=== PATIENT | female | born 1990 | race Caucasian/White ===

== ENCOUNTER 2018-05-05 06:14 | Day surgery (SDC) | payer BC ==
[2018-04-29 11:01] VITALS: BMI 36.9
--- NOTE | 2018-05-04 17:26 | P.HPOB ---
History of Present Illness H&P Date: 05/04/18 Chief Complaint: Family planning Natividad is a 27-year-old female who is completed her family planning and desires permanent sterilization. Risks/benefits/alternatives to a laparoscopic tubal occlusion with Filshie clips were reviewed with the patient in detail all questions were answered for her prior to proceeding to the operating room. Past Medical History Past Medical History: No Reported History History of Any Multi-Drug Resistant Organisms: None Reported Past Surgical History: No Surgical Hx Reported Past Anesthesia/Blood Transfusion Reactions: No Reported Reaction Past Psychological History: No Psychological Hx Reported Smoking Status: Current every day smoker Past Alcohol Use History: None Reported Additional Past Alcohol Use History / Comment(s): Has been smoking for 7 yrs, 2- 3 cigarettes per day. Past Drug Use History: None Reported - Past Family History Mother Family Medical History: No Reported History Medications and Allergies Home Medications Medication Instructions Recorded Confirmed Type Cyanocobalamin (Vitamin B-12) 1,000 mcg PO DAILY 04/29/18 04/29/18 History [Vitamin B-12] Allergies Allergy/AdvReac Type Severity Reaction Status Date / Time No Known Allergies Allergy Verified 04/29/18 10:53 Exam Osteopathic Statement: *. No significant issues noted on an osteopathic structural exam other than those noted in the History and Physical/Consult. - OBG Physical Exam Breast: both: normal (no masses) Abdomen: Obese Abdomen: bowel sounds normal, no diffuse tenderness, no bruit present, no guarding noted, no hepatomegaly, no splenomegaly, no mass Vulva: both: normal Vagina: normal moisture, no discharge Cervix: no lesion, no discharge Uterus: normal size, normal contour Adnexa: both: normal Anus/Rectum: normal perianal skin, no rectal mass, no hemorrhoids, heme negative
[~2018-05-05 06:14] MED LIST: DEXAMETHASONE SOD PHOSPHATE 10 MG/ML 1 ML VIAL IV ONE; HYDROmorphone 0.5 MG/0.5 ML SYRINGE IVP PRN; LACTATED RINGERS 1,000 ML IV SCH; LIDOCAINE 1% 20 ML VIAL (10MG/ML) FOR IV START INTRADERMA PRN; MIDAZOLAM 2 MG/2 ML VIAL IV PRN; ONDANSETRON 4 MG/2 ML VIAL IVP ONE; Pre Op ABX Message 1 EACH MISC MISCELLANE ONE; SCOPOLAMINE 1.5MG/72HR PATCH TRANSDERM ONE
[2018-05-05] MEDS ORDERED: LACTATED RINGERS 1,000 ML IV ONE (06:46)
[2018-05-05] MEDS ORDERED: PROPOFOL 10 MG/ML 20 ML VIAL IV ONE (07:48)
[2018-05-05] MEDS ORDERED: fentaNYL (PF) 50 MCG/ML 2 ML AMP ONE (07:48)
[2018-05-05] MEDS ORDERED: SUCCINYLCHOLINE CHLORIDE 100 MG/5 ML SYR IV ONE (07:48)
[2018-05-05] MEDS ORDERED: MIDAZOLAM 2 MG/2 ML VIAL ONE (07:48)
[2018-05-05] MEDS ORDERED: LIDOCAINE 1% INJ 10MG/ML (20 ML MDV) ONE (07:48)
[2018-05-05] MEDS ORDERED: BUPIVACAINE (PF) 0.5% 30 ML VIAL SQ ONE ×2 (08:06)
--- NOTE | 2018-05-05 08:28 | P.OP ---
Date of Procedure: 05/05/18 Preoperative Diagnosis: Family planning Postoperative Diagnosis: Lap tubal with Filshie clips Procedure(s) Performed: Same Anesthesia: VENTURA Surgeon: Kris Shipley Estimated Blood Loss (ml): 3 Pathology: none sent Condition: stable Disposition: same day Operative Findings: Normal female pelvic anatomy Description of Procedure: Patient was taken to the operating suite where a general anesthetic was found be adequate. She was prepped and draped in the normal sterile fashion and placed in the dorsal lithotomy position. Initially a speculum was inserted into the vagina and the anterior lip of the cervix identified and grasped with an Allis clamp. Uterus was then sounded to 7 cm and a manipulator was inserted without difficulty. Red rubber catheter was then used to drain the bladder of urine. Other instruments removed from the vagina and gloves were changed. Attention was turned to the abdominal portion of the procedure where 3 mL of quarter percent Marcaine was injected subcuticularly. Through this injected anesthetic a 5 mm skin incision was made and through this incision under direct visualization traction with an optical trocar and sleeve the camera was inserted. Once peritoneal placement was assured gas was allowed to fully and slick the abdomen and patient was then placed in steep Trendelenburg position. Second 8 mm skin incision was then made 3 cm above the pubic symphysis in the midline and a second port and sleeve were inserted again under direct visualization. Uterus was then elevated and first the right fallopian tube the left fallopian tube had a Filshie clip applied 2-3 cm from the uterine cornu. No bleeding is noted in the mesosalpinx. Instruments are then removed and gas allowed to expel from the abdomen. 5 deep breaths were provided during this process. Once accomplished 4-0 Vicryl was used to close the incisions subcuticularly and another 5 mL of quarter percent Marcaine was injected around these incisions. Instruments were then removed from the vagina and patient was taken to the recovery room in stable and satisfactory condition. Patient tolerated surgery very well. Plan - Discharge Summary New Discharge Prescriptions: New HYDROcodone/APAP 5-325MG [Calhoun 5-325] 1 tab PO Q4HR PRN 3 Days #18 tab PRN Reason: Pain Ibuprofen [Motrin] 600 mg PO Q6HR PRN #30 tab PRN Reason: Pain No Action Cyanocobalamin (Vitamin B-12) [Vitamin B-12] 1,000 mcg PO DAILY Discharge Medication List Cyanocobalamin (Vitamin B-12) [Vitamin B-12] 1,000 mcg PO DAILY 04/29/18 [ History] HYDROcodone/APAP 5-325MG [Calhoun 5-325] 1 tab PO Q4HR PRN 3 Days #18 tab [Rx] Ibuprofen [Motrin] 600 mg PO Q6HR PRN #30 tab 05/05/18 [Rx] Follow up Appointment(s)/Referral(s): Kris Shipley DO [Doctor of Osteopathic Medicine] - 2 Weeks Activity/Diet/Wound Care/Special Instructions: No heavy lifting, limit stairs and driving today, pelvic rest. If any high temperatures, heavy bleeding, or severe pain call my office Discharge Disposition: HOME SELF-CARE
[2018-05-05 08:31] VITALS: TEMP 96.8
[2018-05-05] MEDS ORDERED: diphenhydrAMINE 50 MG/ML 1 ML VIAL IVP ONE (08:31)
[2018-05-05] MEDS: MEPERIDINE 50 MG/ML SYRINGE IVP ONE ×2 (08:38→08:44)
[2018-05-05 08:53] VITALS: RESP 18
[2018-05-05] MEDS ORDERED: SODIUM CHLORIDE 0.9% 1,000 ML IV ONE (08:54)
[2018-05-05] MEDS ORDERED: IBUPROFEN 200 MG TAB PO ONE (10:12)
[2018-05-05] MEDS ORDERED: ONDANSETRON 4 MG/2 ML VIAL IVP ONE (10:23)
[2018-05-05 11:07] VITALS: BP 117/72; PULSE 80
== END 2018-05-05 11:27 | disposition home or self-care (01) ==
LOC: OR 06:14
PROVIDERS: ATTEND Obstetrics & Gynecology
DX: Z30.2 Encounter for sterilization (principal); F17.210 Nicotine dependence, cigarettes, uncomplicated
CPT/HCPCS: 58671; 81025; J2250; J1200; J1100; J2175; J2405; J2001; J3010; J0330; J2704

== ENCOUNTER 2018-05-24 15:10 | Emergency (ER) | payer BC ==
[2018-05-24 15:25] VITALS: RESP 18
--- NOTE | 2018-05-24 15:43 | ED ---
General Adult HPI - General Chief complaint: Psychiatric Symptoms Stated complaint: drug ingestion Time Seen by Provider: 05/24/18 15:24 Source: EMS Mode of arrival: EMS Limitations: no limitations - History of Present Illness Initial comments: Knee 8 years old female been drinking today and had some 5-7 Motrin 600 mg by mouth one hour ago. She denies any suicidal or homicidal ideation. Denies any headaches no chest pain or shortness of breath has some abdominal pain bolow the umblicus no frequency urgency dysuria, no other complaints. System is unremarkable otherwise - Related Data Home Medications Medication Instructions Recorded Confirmed Cyanocobalamin (Vitamin B-12) 1,000 mcg PO DAILY 04/29/18 05/24/18 [Vitamin B-12] Biotin 5 mg PO DAILY 05/24/18 05/24/18 Allergies Allergy/AdvReac Type Severity Reaction Status Date / Time No Known Allergies Allergy Verified 05/24/18 17:42 Review of Systems ROS Statement: Those systems with pertinent positive or pertinent negative responses have been documented in the HPI. ROS Other: All systems not noted in ROS Statement are negative. Past Medical History Past Medical History: No Reported History History of Any Multi-Drug Resistant Organisms: None Reported Past Surgical History: Tubal Ligation Past Anesthesia/Blood Transfusion Reactions: No Reported Reaction Past Psychological History: No Psychological Hx Reported Smoking Status: Current every day smoker Past Alcohol Use History: Occasional Past Drug Use History: None Reported - Past Family History Mother Family Medical History: No Reported History General Exam - General Exam Comments Initial Comments: General: The patient is awake and alert, in no distress, and does not appear acutely ill. He is pleasant and cooperative but intoxicated Skin: Skin is warm and dry and no rashes or lesions are noted. Eye: Pupils are equal, round and reactive to light, extra-ocular movements are intact; there is normal conjunctiva bilaterally. Ears, nose, mouth and throat: There are moist mucous membranes and no oral lesions. Neck: The neck is supple, there is no tenderness or JVD. Cardiovascular: There is a regular rate and rhythm. No murmur, rub or gallop is appreciated. Respiratory: To auscultation bilateral, no wheezing no rhonchi no distress respiratory portillo noticed Gastrointestinal: Positive for tenderness in epigastric area Back: There is no tenderness to palpation in the midline. There is no obvious deformity. Musculoskeletal: Normal ROM, no tenderness, There is no pedal edema. There is no calf tenderness or swelling. No cords were appreciated. Neurological: CN II-XII intact, Cranial nerves III through XII are intact. There are no obvious motor or sensory deficits. Coordination appears grossly intact. Speech is normal. Psychiatric: Cooperative, Intoxicated denies any suicidal or homicidal ideation at this point obviously she will need to be reevaluated once she is sober EPS Limitations: no limitations Course Vital Signs 05/24/18 15:21 Temperature 98.3 F Pulse Rate 86 Respiratory 18 Rate Blood Pressure 136/94 O2 Sat by Pulse 96 Oximetry I have advised the RN to call the poison control and I'm going to give the patient Protonix 40 mg IV, total protonix patient got is 4200mg. Patient was reassessed once he was sober she also was seen by EPS and now CPS felt comfortable sending her home. She denies any suicidal or homicidal ideation after she sober she got a very good support she has her mom and sister in the in the room, She will follow-up according to the EPS instructions. EKG Findings - EKG Comments: EKG Findings:: She is a normal sinus ventricular rate is 85 DC interval is 156 QRS duration is 88 QT/QTc is 380/454 review of this EKG reveals T-wave inversion in lead [address] elevation or ST depression noticed any other leads. Medical Decision Making - Lab Data Result diagrams: 05/24/18 15:38 05/24/18 15:38 Lab Results 05/24/18 05/24/18 05/24/18 Range/Units 15:38 15:38 15:38 WBC 12.4 H (3.8-10.6) k/uL RBC 4.86 (3.80-5.40) m/uL Hgb 14.1 (11.4-16.0) gm/dL Hct 42.6 (34.0-46.0) % MCV 87.6 (80.0-100.0) fL MCH 29.1 (25.0-35.0) pg MCHC 33.2 (31.0-37.0) g/dL RDW 12.8 (11.5-15.5) % Plt Count 391 (150-450) k/uL Neutrophils % 71 % Lymphocytes % 22 % Monocytes % 5 % Eosinophils % 1 % Basophils % 0 % Neutrophils # 8.8 H (1.3-7.7) k/uL Lymphocytes # 2.8 (1.0-4.8) k/uL Monocytes # 0.6 (0-1.0) k/uL Eosinophils # 0.1 (0-0.7) k/uL Basophils # 0.0 (0-0.2) k/uL Sodium 143 (137-145) mmol/L Potassium 4.8 (3.5-5.1) mmol/L Chloride 110 H (98-107) mmol/L Carbon Dioxide 18 L (22-30) mmol/L Anion Gap 15 mmol/L BUN 7 (7-17) mg/dL Creatinine 0.62 (0.52-1.04) mg/dL Est GFR (CKD-EPI)AfAm >90 (>60 ml/min/1.73 sqM) Est GFR (CKD-EPI)NonAf >90 (>60 ml/min/1.73 sqM) Glucose 91 (74-99) mg/dL Calcium 9.6 (8.4-10.2) mg/dL AST (14-36) U/L ALT (9-52) U/L Urine HCG, Qual (Not Detectd) Salicylates <1.0 mg/dL Urine Opiates Screen Not Detected (NotDetected) Ur Oxycodone Screen Not Detected (NotDetected) Urine Methadone Screen Not Detected (NotDetected) Ur Propoxyphene Screen Not Detected (NotDetected) Acetaminophen <10.0 ug/mL Ur Barbiturates Screen Not Detected (NotDetected) U Tricyclic Antidepress Not Detected (NotDetected) Ur Phencyclidine Scrn Not Detected (NotDetected) Ur Amphetamines Screen Not Detected (NotDetected) U Methamphetamines Scrn Not Detected (NotDetected) U Benzodiazepines Scrn Not Detected (NotDetected) Urine Cocaine Screen Not Detected (NotDetected) U Marijuana (THC) Screen Not Detected (NotDetected) Serum Alcohol 149 mg/dL 05/24/18 05/24/18 Range/Units 15:38 15:38 WBC (3.8-10.6) k/uL RBC (3.80-5.40) m/uL Hgb (11.4-16.0) gm/dL Hct (34.0-46.0) % MCV (80.0-100.0) fL MCH (25.0-35.0) pg MCHC (31.0-37.0) g/dL RDW (11.5-15.5) % Plt Count (150-450) k/uL Neutrophils % % Lymphocytes % % Monocytes % % Eosinophils % % Basophils % % Neutrophils # (1.3-7.7) k/uL Lymphocytes # (1.0-4.8) k/uL Monocytes # (0-1.0) k/uL Eosinophils # (0-0.7) k/uL Basophils # (0-0.2) k/uL Sodium (137-145) mmol/L Potassium (3.5-5.1) mmol/L Chloride (98-107) mmol/L Carbon Dioxide (22-30) mmol/L Anion Gap mmol/L BUN (7-17) mg/dL Creatinine (0.52-1.04) mg/dL Est GFR (CKD-EPI)AfAm (>60 ml/min/1.73 sqM) Est GFR (CKD-EPI)NonAf (>60 ml/min/1.73 sqM) Glucose (74-99) mg/dL Calcium (8.4-10.2) mg/dL AST 27 (14-36) U/L ALT 18 (9-52) U/L Urine HCG, Qual Not Detected (Not Detectd) Salicylates mg/dL Urine Opiates Screen (NotDetected) Ur Oxycodone Screen (NotDetected) Urine Methadone Screen (NotDetected) Ur Propoxyphene Screen (NotDetected) Acetaminophen ug/mL Ur Barbiturates Screen (NotDetected) U Tricyclic Antidepress (NotDetected) Ur Phencyclidine Scrn (NotDetected) Ur Amphetamines Screen (NotDetected) U Methamphetamines Scrn (NotDetected) U Benzodiazepines Scrn (NotDetected) Urine Cocaine Screen (NotDetected) U Marijuana (THC) Screen (NotDetected) Serum Alcohol mg/dL Disposition Clinical Impression: Overdose, Acute alcohol intoxication Disposition: HOME SELF-CARE Condition: Good Instructions: Adult Overdose (ED) Is patient prescribed a controlled substance at d/c from ED?: No Referrals: Jennifer Vega MD [Primary Care Provider] - 1-2 days
[2018-05-24 16:04] LABS: Basophils % (A) 0 %; Eosinophils # (A) 0.1 k/uL (0-0.7); Eosinophils % (A) 1 %; HCT 42.6 % (34.0-46.0); HGB 14.1 gm/dL (11.4-16.0); Lymphocytes # (A) 2.8 k/uL (1.0-4.8); Lymphocytes % (A) 22 %; MCH 29.1 pg (25.0-35.0); MCHC 33.2 g/dL (31.0-37.0); MCV 87.6 fL (80.0-100.0); Mean Platelet Volume 7.4; Monocytes # (A) 0.6 k/uL (0-1.0); Monocytes % (A) 5 %; Neutrophils # (A) 8.8 k/uL (1.3-7.7); Neutrophils % (A) 71 %; Platelet Count 391 k/uL (150-450); RBC 4.86 m/uL (3.80-5.40); RDW 12.8 % (11.5-15.5); WBC 12.4 k/uL (3.8-10.6)
[2018-05-24 16:13] LABS: Acetaminophen <10.0 ug/mL; Amphetamine Screen,Urine Not Detected (NotDetected); Anion Gap 15 mmol/L; Benzodiazepines Screen,Urine Not Detected (NotDetected); Blood Urea Nitrogen 7 mg/dL (7-17); Calcium 9.6 mg/dL (8.4-10.2); Carbon Dioxide 18 mmol/L (22-30); Chloride 110 mmol/L (98-107); Cocaine Screen,Urine Not Detected (NotDetected); Glucose 91 mg/dL (74-99); Opiate Screen,Urine Not Detected (NotDetected); Phencyclidine Screen,Urine Not Detected (NotDetected); Potassium 4.8 mmol/L (3.5-5.1); Salicylate <1.0 mg/dL; Sodium 143 mmol/L (137-145); Urn Cannabinoid Scrn Not Detected (NotDetected)
[2018-05-24 16:14] LABS: Barbiturate Screen,Urine Not Detected (NotDetected); Methadone Screen, Urine Not Detected (NotDetected); Oxycodone Screen, Urine Not Detected (NotDetected); Tricyclic Antidepressant,Urine Not Detected (NotDetected)
[2018-05-24 16:15] LABS: Alcohol 149 mg/dL
[2018-05-24] MEDS: SODIUM CHLORIDE 0.9% 2,000 ML IV ONE (16:33)
--- NOTE | 2018-05-24 17:03 | XR ---
EXAMINATION TYPE: XR KUB DATE OF EXAM: 05/24/2018 4:58 PM CLINICAL HISTORY: Abdominal pain TECHNIQUE: Single upright image of the abdomen is obtained. COMPARISON: None. FINDINGS: Scattered gas is seen in nondilated small bowel loops. Mild to moderate retained colonic st ool is noted. Gas and fecal material is seen in nondilated colon. There is no visceromegaly, pneumope ritoneum, or abnormal calcification appreciated. Tubal ligation clips are present within the pelvis. The lung bases are clear and the osseous structures are intact. IMPRESSION: Nonobstructive bowel gas pattern.
[2018-05-24 17:37] LABS: ALT 18 U/L (9-52); AST 27 U/L (14-36)
[2018-05-24 19:52] VITALS: BP 134/76; PULSE 76; TEMP 97.8
== END 2018-05-24 19:52 | disposition home or self-care (01) ==
LOC: EC 15:10
DX: T39.311A Poisoning by propionic acid derivatives, accidental (unintentional), initial encounter (principal); F10.129 Alcohol abuse with intoxication, unspecified; F17.200 Nicotine dependence, unspecified, uncomplicated; Z79.899 Other long term (current) drug therapy
CPT/HCPCS: 36415; 74018; 80048; 80306; 80320; 81025; 82075; 83520; 84450; 84460; 85025; 93005; 96360; 96361; 99285

== ENCOUNTER 2021-01-13 17:57 | Emergency (ER) | payer BC, MEDICAID ==
[2021-01-13 18:04] VITALS: TEMP 98.6
[2021-01-13] MEDS ORDERED: KETOROLAC 15 MG/ML 1 ML VIAL IM STA (20:23)
--- NOTE | 2021-01-13 20:25 | ED ---
Neck Injury/Pain HPI - General Chief Complaint: Neck Pain/Injury Stated Complaint: neck pain Time Seen by Provider: 01/13/21 20:10 Source: patient, RN notes reviewed Mode of arrival: ambulatory Limitations: no limitations - History of Present Illness Initial Comments: 30-year-old white female, alert and oriented 4, presents to the emergency room for 1 year of neck pain worse when turning her head to the right. Patient states 1 year ago she lays her hands above her head and felt pain and since has had difficulty turning her head to the right. Patient did not see her primary care doctor at that time. Patient states this episode occurred 3 days ago when she woke up with the right sided stiff neck. Patient recently made an appointment with the chiropractor for this chronic pain. Patient states tried Aleve at home with no relief. Patient states also feels pain in the base of her skull when she swallows but denies fevers, sore throat, nausea, vomiting, or headaches. MD Complaint: neck pain -: days(s) (chronic for 1 year, worse over past 3 days) Severity scale (1-10): 8 Quality: sharp Consistency: constant Improves With: immobilization Worsens With: movement of neck Context: turning/bending (worse when turning head to right, also worse pain in back of neck with swallowing) Associated Symptoms: none Treatments Prior to Arrival: other (aleeve at 0900) - Related Data Home Medications Medication Instructions Recorded Confirmed Cyanocobalamin (Vitamin B-12) 1,000 mcg PO DAILY 04/29/18 05/24/18 [Vitamin B-12] Biotin 5 mg PO DAILY 05/24/18 05/24/18 Previous Rx's Medication Instructions Recorded Cyclobenzaprine [Flexeril] 10 mg PO TID PRN #15 tab 01/13/21 Allergies Allergy/AdvReac Type Severity Reaction Status Date / Time No Known Allergies Allergy Verified 01/13/21 18:04 Review of Systems ROS Statement: Those systems with pertinent positive or pertinent negative responses have been documented in the HPI. ROS Other: All systems not noted in ROS Statement are negative. Past Medical History Past Medical History: No Reported History History of Any Multi-Drug Resistant Organisms: None Reported Past Surgical History: Tubal Ligation Past Anesthesia/Blood Transfusion Reactions: No Reported Reaction Past Psychological History: ADD/ADHD Smoking Status: Current every day smoker Past Alcohol Use History: Occasional Past Drug Use History: None Reported - Past Family History Mother Family Medical History: No Reported History General Exam Limitations: no limitations General appearance: alert, in no apparent distress Head exam: Present: atraumatic, normocephalic, normal inspection Eye exam: Present: normal appearance, PERRL, EOMI. Absent: scleral icterus, conjunctival injection, periorbital swelling ENT exam: Present: normal exam, normal oropharynx, mucous membranes moist, TM's normal bilaterally, normal external ear exam Neck exam: Present: normal inspection. Absent: tenderness, meningismus, full ROM, lymphadenopathy, thyromegaly (No pain with palpation of the trapezius muscles, no C-spine tenderness) Respiratory exam: Present: normal lung sounds bilaterally. Absent: respiratory distress, wheezes, rales, rhonchi, stridor Cardiovascular Exam: Present: regular rate, normal rhythm, normal heart sounds. Absent: systolic murmur, diastolic murmur, rubs, gallop, clicks GI/Abdominal exam: Present: soft, normal bowel sounds. Absent: distended, tenderness, guarding, rebound, rigid Back exam: Absent: tenderness, CVA tenderness (R), CVA tenderness (L), vertebral tenderness Neurological exam: Present: alert, oriented X3, CN II-XII intact Expanded Neurological exam: Absent: inattentive, receptive aphasia, expressive aphasia, total aphasia, tremor Patient oriented to: Present: person, place, time Speech: Present: fluid speech Cranial nerves: EOM's Intact: Normal, Gag Reflex: Normal, Tongue Deviation: Normal, Facial Sensation: Normal, Facial Palsy with Forehead Movement: Normal, Facial Palsy without Forehead Movement: Normal Cerebellar function: Heel to Campbell: Normal, Romberg: Normal Motor strength exam: RUE: 5, LUE: 5, RLE: 5, LLE: 5 Eye Response: (4) open spontaneously Motor Response: (6) obeys commands Verbal Response: (5) oriented Uriel Total: 15 Psychiatric exam: Present: normal affect, normal mood Skin exam: Present: warm, dry, intact, normal color. Absent: rash Course Vital Signs 01/13/21 01/13/21 18:02 22:07 Temperature 98.6 F 98.6 F Pulse Rate 86 89 Respiratory 20 18 Rate Blood Pressure 169/102 127/82 O2 Sat by Pulse 100 100 Oximetry Medical Decision Making - Medical Decision Making Case discussed with Dr. Powers, patient neurologically intact status to the right side of neck started when she woke today. Patient has history of the same for the past year. No injury no fall patient states relief of headache with the Toradol. will discharge patient with prescription for Flexeril and Motrin. Disposition Clinical Impression: Neck muscle strain Clinical Impression: (Ruled Out): Torticollis Disposition: HOME SELF-CARE Condition: Good Instructions (If sedation given, give patient instructions): Neck Pain (ED) Additional Instructions: Take Flexeril and Motrin as prescribed. increase your fluid intake and follow-up with your primary care doctor if you continue to have pain after 3 days. Prescriptions: Cyclobenzaprine [Flexeril] 10 mg PO TID PRN #15 tab PRN Reason: Muscle Spasm Is patient prescribed a controlled substance at d/c from ED?: No Referrals: Trace Paige MD [Primary Care Provider] - 1-2 days Time of Disposition: 21:49
[2021-01-13] MEDS ORDERED: CYCLOBENZAPRINE 5 MG TAB PO STA (20:27)
[2021-01-13] MEDS ORDERED: methylPREDNISolone SOD SUCCI 125 MG/2 ML VIAL IM ONE (21:54)
[2021-01-13 22:09] VITALS: BP 127/82; PULSE 89; RESP 18
== END 2021-01-13 22:08 | disposition home or self-care (01) ==
LOC: EC 17:57
DX: S16.1XXA Strain of muscle, fascia and tendon at neck level, initial encounter (principal); X58.XXXA Exposure to other specified factors, initial encounter
CPT/HCPCS: 96372; 99283

== ENCOUNTER 2024-02-12 21:35 | Inpatient (IN) | payer BC, MEDICAID ==
--- NOTE | 2024-02-12 22:27 | ED ---
Psych HPI - General Chief Complaint: Psychiatric Symptoms Stated Complaint: mental health Time Seen by Provider: 02/12/24 21:58 Source: family Mode of arrival: ambulatory - History of Present Illness Initial Comments: 33-year-old female presenting for mental health evaluation. Patient states that she is having thoughts of self-harm. She denies any active plan to harm herself she states "I have not gotten that far". Denies any homicidal ideation. She states that she has a gambling addiction which is interfering with her marriage, home ownership, job, no other aspects of her life. She denies any alcohol or drug use. She has no physical symptoms today. She is accompanied by family members in the room. - Related Data Home Medications Medication Instructions Recorded Confirmed Cyanocobalamin (Vitamin B-12) 1,000 mcg PO DAILY 04/29/18 05/24/18 [Vitamin B-12] Biotin 5 mg PO DAILY 05/24/18 05/24/18 Previous Rx's Medication Instructions Recorded Cyclobenzaprine [Flexeril] 10 mg PO TID PRN #15 tab 01/13/21 Allergies Allergy/AdvReac Type Severity Reaction Status Date / Time No Known Allergies Allergy Verified 02/12/24 21:56 Review of Systems ROS Statement: Those systems with pertinent positive or pertinent negative responses have been documented in the HPI. ROS Other: All systems not noted in ROS Statement are negative. Past Medical History Past Medical History: No Reported History History of Any Multi-Drug Resistant Organisms: None Reported Past Surgical History: Tubal Ligation Past Anesthesia/Blood Transfusion Reactions: No Reported Reaction Past Psychological History: ADD/ADHD Smoking Status: Current every day smoker, Vaper Past Alcohol Use History: Occasional Past Drug Use History: None Reported - Past Family History Mother Family Medical History: No Reported History General Exam Limitations: no limitations General appearance: alert, in no apparent distress Head exam: Present: atraumatic, normocephalic Eye exam: Present: normal appearance, EOMI Neck exam: Present: normal inspection. Absent: meningismus Respiratory exam: Present: normal lung sounds bilaterally. Absent: respiratory distress, wheezes, rales, rhonchi, stridor Cardiovascular Exam: Present: regular rate, normal rhythm, normal heart sounds. Absent: systolic murmur, diastolic murmur, rubs, gallop, clicks Neurological exam: Present: alert, oriented X3 Psychiatric exam: Present: flat affect, suicidal ideation. Absent: homicidal ideation Skin exam: Present: warm, dry Course Vital Signs 02/12/24 02/13/24 21:55 03:38 Temperature 97.5 F L Pulse Rate 84 82 Respiratory 18 18 Rate Blood Pressure 135/90 128/80 O2 Sat by Pulse 100 100 Oximetry Medical Decision Making - Medical Decision Making Was pt. sent in by a medical professional or institution (, PA, PIERCE AND SHAVE PRESS OPERATOR, urgent care, hospital, or prison...) When possible be specific @ -No Did you speak to anyone other than the patient for history (EMS, parent, family, police, friend...)? What history was obtained from this source @ -No Did you review nursing and triage notes (agree or disagree)? Why? @ -I reviewed and agree with nursing and triage notes Were old charts reviewed (outside hosp., previous admission, EMS record, old EKG, old radiological studies, urgent care reports/EKG's, prison records)? Report findings @ -No old charts were reviewed Differential Diagnosis (chest pain, altered mental status, abdominal pain women, abdominal pain men, vaginal bleeding, weakness, fever, dyspnea, syncope, headache, dizziness, GI bleed, back pain, seizure, CVA, palpatations, mental health, musculoskeletal)? @ -Differential Mental Health Depression, anxiety, bipolar, psychosis, schizophrenia, borderline personality, situational depression, adjustment disorder, behavioral disorder, brain tumor, malingering, substance abuse, encephalopathy, medication reaction, dementia, hypothyroidism, degenerative neurologic disorder, lupus.... This is not meant to be all-inclusive list EKG interpreted by me (3pts min.). @ -As above X-rays interpreted by me (1pt min.). @ -None done CT interpreted by me (1pt min.). @ -None done U/S interpreted by me (1pt. min.). @ -None done What testing was considered but not performed or refused? (CT, X-rays, U/S, labs)? Why? @ -None What meds were considered but not given or refused? Why? @ -None Did you discuss the management of the patient with other professionals (professionals i.e. , PA, PIERCE AND SHAVE PRESS OPERATOR, lab, RT, psych nurse, social science professor, heel builder machine, teacher, ski patrol officer, case fitter)? Give summary @ -EPS nurse recommends admission Was smoking cessation discussed for >3mins.? @ -No Was critical care preformed (if so, how long)? @ -No Were there social determinants of health that impacted care today? How? (Home lessness, low income, unemployed, alcoholism, drug addiction, transportation, low edu. Level, literacy, decrease access to med. care, fci, rehab)? @ -No Was there de-escalation of care discussed even if they declined (Discuss DNR or withdrawal of care, Hospice)? DNR status @ -No What co-morbidities impacted this encounter? (DM, HTN, Smoking, COPD, CAD, Cancer, CVA, ARF, Chemo, Hep., AIDS, mental health diagnosis, sleep apnea, morbid obesity)? @ -None Was patient admitted / discharged? Hospital course, mention meds given and route, prescriptions, significant lab abnormalities, going to OR and other pertinent info. @ -33-year-old female presenting for mental health evaluation. She admits to suicidal ideation. Denies homicidal ideation. No she is positive for amphetamines, patient does take Adderall. Urine shows no infectious process or bleeding with negative hCG. She is evaluated by EPS who recommends admission. Undiagnosed new problem with uncertain prognosis? @ -No Drug Therapy requiring intensive monitoring for toxicity (Heparin, Nitro, Insulin, Cardizem)? @ -No Were any procedures done? @ -No Diagnosis/symptom? @ -Suicidal ideation Acute, or Chronic, or Acute on Chronic? @ -Acute Uncomplicated (without systemic symptoms) or Complicated (systemic symptoms)? @ -Complicated Side effects of treatment? @ -No Exacerbation, Progression, or Severe Exacerbation? @ -No Poses a threat to life or bodily function? How? (Chest pain, USA, DC, pneumonia, PE, COPD, DKA, ARF, appy, cholecystitis, CVA, Diverticulitis, Homicidal, Suicidal, threat to staff... and all critical care pts) @ -Yes - Lab Data Lab Results 02/12/24 02/12/24 02/13/24 Range/Units 22:27 22:27 01:27 Urine Color Colorless Urine Appearance Clear (Clear) Urine pH 6.0 (5.0-8.0) Ur Specific [place] 1.001 (1.001-1.035) Urine Protein Negative (Negative) Urine Glucose (UA) Negative (Negative) Urine Ketones Negative (Negative) Urine Blood Negative (Negative) Urine Nitrite Negative (Negative) Urine Bilirubin Negative (Negative) Urine Urobilinogen <2.0 (<2.0) mg/dL Ur Leukocyte Esterase Negative (Negative) Urine HCG, Qual Not Detected (Not Detectd) Urine Opiates Screen Not Detected (NotDetected) Ur Oxycodone Screen Not Detected (NotDetected) Urine Methadone Screen Not Detected (NotDetected) Ur Barbiturates Screen Not Detected (NotDetected) U Tricyclic Antidepress Not Detected (NotDetected) Ur Phencyclidine Scrn Not Detected (NotDetected) Ur Amphetamines Screen Detected H (NotDetected) U Methamphetamines Scrn Not Detected (NotDetected) U Benzodiazepines Scrn Not Detected (NotDetected) Urine Cocaine Screen Not Detected (NotDetected) U Marijuana (THC) Screen Not Detected (NotDetected) SARS-CoV-2 (PCR) Not Detected (Not Detectd) Disposition Clinical Impression: Suicidal ideation Disposition: ADMITTED IP TO THIS HOSP Condition: Fair Time of Disposition: 02:05
[2024-02-12 22:39] LABS: Appearance,Urine Clear (Clear); Bilirubin,Urine Negative (Negative); Blood,Urine Negative (Negative); Color,Urine Colorless; Glucose,Urine (UA) Negative (Negative); Ketones,Urine Negative (Negative); Leukocyte Esterase,Urine Negative (Negative); Nitrite,Urine Negative (Negative); Protein,Urine Negative (Negative); Specific Gravity,Urine 1.001 (1.001-1.035); Urobilinogen,Urine <2.0 mg/dL (<2.0)
[2024-02-12 22:48] LABS: Cocaine Screen,Urine Not Detected (NotDetected); Opiate Screen,Urine Not Detected (NotDetected); Phencyclidine Screen,Urine Not Detected (NotDetected); Urn Cannabinoid Scrn Not Detected (NotDetected)
[2024-02-12 22:49] LABS: Amphetamine Screen,Urine Detected (NotDetected); Barbiturate Screen,Urine Not Detected (NotDetected); Benzodiazepines Screen,Urine Not Detected (NotDetected); Methadone Screen, Urine Not Detected (NotDetected); Oxycodone Screen, Urine Not Detected (NotDetected); Tricyclic Antidepressant,Urine Not Detected (NotDetected)
[2024-02-13] MEDS ORDERED: HALOPERIDOL LACTATE 5 MG/ML 1 ML VIAL IM PRN (03:27)
[2024-02-13] MEDS ORDERED: MAGNESIUM HYDROXIDE 2,400 MG/30 ML CUP PO PRN (03:27)
[2024-02-13] MEDS ORDERED: LORazepam 2 MG/ML INJ IM PRN (03:27)
[2024-02-13] MEDS ORDERED: MAG HYDROX/AL HYDROX/SIMETH 355 ML BOTTLE PO PRN (03:27)
[2024-02-13] MEDS ORDERED: ACETAMINOPHEN TAB 325 MG TAB PO PRN (03:27)
[2024-02-13] MEDS ORDERED: haloperidoL 5 MG TAB PO PRN (03:34)
[2024-02-13] MEDS: LORazepam 1 MG TAB PO PRN (04:18)
[2024-02-13] MEDS: NICOTINE 14MG/24HR PATCH TRANSDERM SCH (09:39)
[2024-02-13 12:54] LABS: Basophils % (A) 1 %; Eosinophils # (A) 0.2 k/uL (0-0.7); Eosinophils % (A) 2 %; HCT 44.2 % (34.0-46.0); HGB 14.2 gm/dL (11.4-16.0); Lymphocytes # (A) 2.1 k/uL (1.0-4.8); Lymphocytes % (A) 22 %; MCH 29.3 pg (25.0-35.0); MCHC 32.2 g/dL (31.0-37.0); Monocytes # (A) 0.7 k/uL (0-1.0); Monocytes % (A) 8 %; Neutrophils # (A) 6.1 k/uL (1.3-7.7); Neutrophils % (A) 66 %; Platelet Count 412 k/uL (150-450); RBC 4.86 m/uL (3.80-5.40); RDW 13.3 % (11.5-15.5); WBC 9.2 k/uL (3.8-10.6)
[2024-02-13 13:00] LABS: ALT 46 U/L (4-34); AST 37 U/L (14-36); African American GFR (CKD) >90 (>60 ml/min/1.73 sqM); Albumin 4.5 g/dL (3.5-5.0); Alkaline Phosphatase 72 U/L (38-126); Anion Gap 11 mmol/L; Blood Urea Nitrogen 7 mg/dL (7-17); Calcium 9.5 mg/dL (8.4-10.2); Carbon Dioxide 24 mmol/L (22-30); Chloride 106 mmol/L (98-107); Glucose 85 mg/dL (74-99); Non-African American GFR(CKD) >90 (>60 ml/min/1.73 sqM); Potassium 4.5 mmol/L (3.5-5.1); Sodium 141 mmol/L (137-145); Total Bilirubin 0.6 mg/dL (0.2-1.3); Total Protein 7.5 g/dL (6.3-8.2)
--- NOTE | 2024-02-13 16:55 | P.HP ---
Psychiatric H&P - . H&P Date: 02/13/24 History & Physical: Allergies Allergy/AdvReac Type Severity Reaction Status Date / Time No Known Allergies Allergy Verified 02/13/24 05:39 Vital Signs Temp 97.0 F L 02/13/24 03:55 Pulse 95 02/13/24 03:55 Resp 18 02/13/24 03:55 BP 111/73 02/13/24 03:55 Pulse Ox 97 02/13/24 03:55 FiO2 Intake & Output 02/12/24 02/13/24 02/13/24 18:59 06:59 18:59 Weight 96.9 kg Laboratory Last Values WBC 9.2 k/uL (3.8-10.6) 02/13/24 11:51 RBC 4.86 m/uL (3.80-5.40) 02/13/24 11:51 Hgb 14.2 gm/dL (11.4-16.0) 02/13/24 11:51 Hct 44.2 % (34.0-46.0) 02/13/24 11:51 MCV 91.0 fL (80.0-100.0) 02/13/24 11:51 MCH 29.3 pg (25.0-35.0) 02/13/24 11:51 MCHC 32.2 g/dL (31.0-37.0) 02/13/24 11:51 RDW 13.3 % (11.5-15.5) 02/13/24 11:51 Plt Count 412 k/uL (150-450) 02/13/24 11:51 MPV 8.0 02/13/24 11:51 Neutrophils % 66 % 02/13/24 11:51 Lymphocytes % 22 % 02/13/24 11:51 Monocytes % 8 % 02/13/24 11:51 Eosinophils % 2 % 02/13/24 11:51 Basophils % 1 % 02/13/24 11:51 Neutrophils # 6.1 k/uL (1.3-7.7) 02/13/24 11:51 Lymphocytes # 2.1 k/uL (1.0-4.8) 02/13/24 11:51 Monocytes # 0.7 k/uL (0-1.0) 02/13/24 11:51 Eosinophils # 0.2 k/uL (0-0.7) 02/13/24 11:51 Basophils # 0.0 k/uL (0-0.2) 02/13/24 11:51 Sodium 141 mmol/L (137-145) 02/13/24 11:51 Potassium 4.5 mmol/L (3.5-5.1) 02/13/24 11:51 Chloride 106 mmol/L (98-107) 02/13/24 11:51 Carbon Dioxide 24 mmol/L (22-30) 02/13/24 11:51 Anion Gap 11 mmol/L 02/13/24 11:51 BUN 7 mg/dL (7-17) 02/13/24 11:51 Creatinine 0.66 mg/dL (0.52-1.04) 02/13/24 11:51 Est GFR (CKD-EPI)AfAm >90 (>60 ml/min/1.73 sqM) 02/13/24 11:51 Est GFR (CKD-EPI)NonAf >90 (>60 ml/min/1.73 sqM) 02/13/24 11:51 Glucose 85 mg/dL (74-99) 02/13/24 11:[address] Glu mg/dL 105 mg/dL 02/13/24 11:51 Hemoglobin A1c 5.3 % (<=6.0) 02/13/24 11:51 Calcium 9.5 mg/dL (8.4-10.2) 02/13/24 11:51 Total Bilirubin 0.6 mg/dL (0.2-1.3) 02/13/24 11:51 AST 37 U/L (14-36) H 02/13/24 11:51 ALT 46 U/L (4-34) H 02/13/24 11:51 Alkaline Phosphatase 72 U/L (38-126) 02/13/24 11:51 Total Protein 7.5 g/dL (6.3-8.2) 02/13/24 11:51 Albumin 4.5 g/dL (3.5-5.0) 02/13/24 11:51 TSH 0.530 mIU/L (0.465-4.680) 02/13/24 11:51 Urine Color Colorless 02/12/24 22:27 Urine Appearance Clear (Clear) 02/12/24 22:27 Urine pH 6.0 (5.0-8.0) 02/12/24 22: Ur Specific [place] 1.001 (1.001-1.035) 02/12/24: Urine Protein Negative (Negative) 02/12/24: Urine Glucose (UA) Negative (Negative) 02/12/24: Urine Ketones Negative (Negative) 02/12/24: Urine Blood Negative (Negative) 02/12/24: Urine Nitrite Negative (Negative) 02/12/24: Urine Bilirubin Negative (Negative) 02/12/24: Urine Urobilinogen <2.0 mg/dL (<2.0) 02/12/24: Ur Leukocyte Esterase Negative (Negative) 02/12/24 Urine HCG, Qual Not Detected (Not Detectd) 02/12/24: Urine Opiates Screen Not Detected (NotDetected) 02/12/24: Ur Oxycodone Screen Not Detected (NotDetected) 02/12/24: Urine Methadone Screen Not Detected (NotDetected) 02/12/24: Ur Barbiturates Screen Not Detected (NotDetected) 02/12/24 22: U Tricyclic Antidepress Not Detected (NotDetected) 02/12/24: Ur Phencyclidine Scrn Not Detected (NotDetected) 02/12/24 22: Ur Amphetamines Screen Detected (NotDetected) H 02/12/24: U Methamphetamines Scrn Not Detected (NotDetected) 02/12/24: U Benzodiazepines Scrn Not Detected (NotDetected) 02/12/24: Urine Cocaine Screen Not Detected (NotDetected) 02/12/24: U Marijuana (THC) Screen Not Detected (NotDetected) 02/12/24: SARS-CoV-2 (PCR) Not Detected (Not Detectd) 02/13/24 01:27 02/13/24 16:54 In-Patient Follow-up Chief Complaint: I am tired Subjective: The patient noted doing slightly better in her anger. Her depression was noted to be worse. The patient noted that she did not sleep well. She took her medications. She is not noticing any side effects. The patient has been going to the groups. She has been complaint with treatment recommendations. Leading questions: The patient admitted to Depression and Anxiety. Denied SI or HI. Denied symptoms consistent with psychosis Sleep and Appetite: Impaired Interim History: Behavioral Changes: PRN meds/isolation/restraints/ change in status: The patient received One dose Haldol last night and one dose of Ativan this morning. She received Haldo for being agitated and redirectable. Change in medical condition: No change. Change in medications: No change. Side effects from Medications: None. Objective- MSE: Alert and attentive. Orientation times three. Dressed and Groomed: Appropriately. Pleasant and cooperative. Psychomotor Activity: Normal. Speech: Normal in tone, quality, and underproductive. Mood: depressed and Anxious. Affect: Blunted SI or HI: None. Perceptual disturbance: None. Thought Content: No paranoia or other delusional thinking noted. Thought Process: Normal. Cognition: Intact Judgment and Insight: Good AIMS: Normal. Labs: No renew Lab Diagnosis: No change. Plan and recommendation: Continue current Medications. Increase Effexor to 150 mg daily. Monitor MS and side effects of medications and adjust medications accordingly. Provide supportive psychotherapy. The patient provided psychoeducation. The patient provided Substance abuse counseling. Smoke cessation therapy. The patient to continue attending the vale activities. Medication Consent with explanation of risk/benefits and side effects: Explained and obtained.
[2024-02-13 23:27] LABS: Chol/HDL Ratio 1.95 Ratio; LDL Cholesterol,Calculated 40.2 mg/dL (0.0-131.0); VLDL Calculation 14.84 mg/dL (5.00-40.00)
--- NOTE | 2024-02-14 00:25 | P.CONS ---
History of Present Illness - Reason for Consult Consult date: 02/14/24 - History of Present Illness The patient is a 33-year-old female with a PMH of ADHD and tobacco abuse who had presented to the emergency room with complaints of depression and suicidal ideation. The patient was admitted to the mental health in which she was seen and evaluated. The patient notes that she has been struggling with her mental health due to her gambling addiction and that her just recently found ou t. She reports being 3 months behind on her mortgage. She reports vape use with but denied alcohol or illicit substance use. She denies experiencing chest discomfort, shortness of breath, fever, chills, cough, nausea, vomiting, abdominal pain, diarrhea. Review of systems: Pertinent positives and negatives as discussed in HPI, a complete review of systems was performed and all other systems are negative. Physical examination: General: non toxic, no distress, appears at stated age, normal weight Derm: no unusual rashes/lesions, no unusual ecchymoses, warm, dry Head: atraumatic, normocephalic, symmetric Eyes: EOMI, no lid lag, anicteric sclera ENT: Nose and ears atraumatic, no thrush, no pharyngeal erythema Neck: trachea midline, supple Mouth: no lip lesion, mucus membranes moist Cardiovascular: S1S2 reg, no murmur, no edema Lungs: CTA bilateral, no rhonchi, no rales , no accessory muscle use Abdominal: soft, nontender to palpation, no guarding Ext: no gross muscle atrophy, no contractures, Neuro: No gross focal neuro deficits noted Psych: Alert, oriented, appropriate affect Assessment: Transaminitis Depression and suicidal ideation Imaging: None performed Data Review: Laboratory evaluation reviewed with UA unremarkable and urine toxicology positive for amphetamines with sodium 141, potassium 4.5, WBC count 9.2, hemoglobin 14.2, AST 37 and ALT 46 Plan: Check right upper quadrant ultrasound Defer management of depression and suicidal ideation to the primary psychiatry service Thank you for allowing us to participate in the care of this patient. We will follow peripherally. Do not hesitate to contact us with questions. Someone can be reached from the [facility] hospitalist group at all hours of the day at [phone]. Past Medical History Past Medical History: No Reported History History of Any Multi-Drug Resistant Organisms: None Reported Past Surgical History: Tubal Ligation Past Anesthesia/Blood Transfusion Reactions: No Reported Reaction Past Psychological History: ADD/ADHD Smoking Status: Current every day smoker, Vaper Past Alcohol Use History: Occasional Additional Past Alcohol Use History / Comment(s): Has been smoking for 7 yrs, 2- 3 cigarettes per day. Past Drug Use History: None Reported - Past Family History Mother Family Medical History: No Reported History Medications and Allergies Home Medications Medication Instructions Recorded Confirmed Type Cyanocobalamin (Vitamin B-12) 1,000 mcg PO DAILY 04/29/18 05/24/18 History [Vitamin B-12] Biotin 5 mg PO DAILY 05/24/18 05/24/18 History Cyclobenzaprine [Flexeril] 10 mg PO TID PRN #15 tab 01/13/21 Rx Allergies Allergy/AdvReac Type Severity Reaction Status Date / Time No Known Allergies Allergy Verified 02/13/24 05:39 Physical Exam Vitals: Vital Signs Temp Pulse Pulse Pulse Resp BP BP 02/13/24 19:27 101 H 121/74 02/13/24 03:55 97.0 F L 95 18 02/13/24 03:38 82 18 128/80 BP Pulse Ox 02/13/24 19:27 02/13/24 03:55 111/73 97 02/13/24 03:38 100 Results CBC & Chem 7: 02/13/24 11:51 02/13/24 11:51 Labs: Abnormal Lab Results - Last 24 Hours (Table) 02/13/24 Range/Units 11:51 AST 37 H (14-36) U/L ALT 46 H (4-34) U/L
[2024-02-14] MEDS: FLUoxetine HCL 10 MG CAP PO SCH (09:06)
--- NOTE | 2024-02-14 12:17 | P.PN ---
Progress Note - Text Progress Note Date: 02/14/24 Interval history: Patient was seen wandering the hallways and was directable and agreeable to s peak with marketing copywriter. Patient states that she was just visited by her , states that the visit was good. She was focused on discharge. States that she feels medication has not helped her yet. She was agreeable to have her Prozac increased for tomorrow. States that her sleep has been on and off, was agreeable to try melatonin tonight. States that she has been going to some groups, eating fairly. At this time patient denies any suicidal or homicidal ideations intent or plan. Denies any Auditory or visual hallucinations. Patient denies any side effects from the medications and has been compliant with meds. Mental status exam: General Appearance: Patient appears to be tall, stated age is alert, directable, and cooperative. Behavior: No agitated behavior. Patient is calm and directable Speech: Patient's speech is fluent and nonpressured. Mood/Affect: Mood is improving mildly, still depressed, affect is congruent and constricted. Suicidality/Homicidality: Patient denies having any suicidal or homicidal ideation intent or plan. Perceptions: Patient denies any auditory or visual hallucinations. Though content/process: There is no evidence of any delusional thought content and thought process is linear and goal-directed. Focused on discharge Memory and concentration: AOX3, grossly intact for the purposes of this session Judgment and insight: improving mildly Assessment/Plan: Continue with current diagnosis. Patient continues to meet criteria for inpatient psychiatric admission for symptom stabilization and safety. Patient will be maintained on current psychotropic medication regimen, with the exception of increasing Prozac to 20 mg daily for tomorrow, also added melatonin 5 mg nightly for sleep. Monitor for medication compliance and for any psychotropic medication side effects. Will continue to monitor ongoing response to treatment. Encouraged participation in milieu.
[2024-02-14] MEDS: MELATONIN 5 MG TABLET PO SCH (20:34)
[2024-02-15 07:42] VITALS: RESP 14
[2024-02-15] MEDS: FLUoxetine HCL 20 MG CAP PO SCH (08:23)
--- NOTE | 2024-02-15 10:55 | P.PN ---
Progress Note - Text Progress Note Date: 02/15/24 Interval history: Patient was seen wandering the hallways and was directable and agreeable to s peak with sports book writer. Patient claims that she is trying to participate more with others on the unit. States that it is hard for her to tell whether the medications have been helping or not however claims that she feels more positive about her situation. Less focused on discharge today. States that her sleep has been on and off. States that she has been going to some groups, eating fairly. At this time patient denies any suicidal or homicidal ideations intent or plan. Denies any Auditory or visual hallucinations. Patient denies any side effects from the medications and has been compliant with meds. Mental status exam: General Appearance: Patient appears to be tall, stated age is alert, directable, and cooperative. Behavior: No agitated behavior. Patient is calm and directable, improving mildly Speech: Patient's speech is fluent and nonpressured. Mood/Affect: Mood is improving mildly, still depressed, affect is congruent and constricted. Suicidality/Homicidality: Patient denies having any suicidal or homicidal ideation intent or plan. Perceptions: Patient denies any auditory or visual hallucinations. Though content/process: There is no evidence of any delusional thought content and thought process is linear and goal-directed. less Focused on discharge Memory and concentration: AOX3, grossly intact for the purposes of this session Judgment and insight: improving mildly Assessment/Plan: Continue with current diagnosis. Patient continues to meet criteria for inpatient psychiatric admission for symptom stabilization and safety. Patient will be maintained on current psychotropic medication regimen. Monitor for medication compliance and for any psychotropic medication side effects. Will continue to monitor ongoing response to treatment. Encouraged participation in milieu.
[2024-02-16 07:32] VITALS: BP 111/58; PULSE 73; TEMP 98.9
[2024-02-16] MEDS: BENZOCAINE/MENTHOL LOZENG 1 EACH LOZENGE MUCOUS MEM PRN (09:02)
--- NOTE | 2024-02-16 22:38 | P.DS ---
Providers Date of admission: 02/13/24 03:22 Expected date of discharge: 02/16/24 Attending physician: Jama Gould MD Consults: 02/13/24 03:27 Consult Physician Routine Consulting Provider: Leeroy Solis Consult Reason/Comments: H&P for mental health admission Do you want consulting provider notified?: Yes Primary care physician: Trace Paige - Discharge Diagnosis(es) (1) Major depressive disorder, recurrent episode, moderate Status: Acute Priority: Medium (2) Pathological gambling Status: Acute Priority: Medium Hospital Course: Discharge Summary HPI: Current psychiatric History: The patient indicated that she has gambling addiction for past one year. It got very bad in last 6 months. The patient noted that the gambling was getting in her finances. She is behind in car payments as well as house. She thinks that she might lose her car and house. The patients knows about her addiction but she continued gambling despite his request to stop. She got very stressed in past 2 weeks leading to symptoms of guilt, sleep disturbance, racing mind, anxiety, feeling hopeless and thoughts suicide. She told her mother about her situation and suicidal thoughts. Her mother brought patient to ER. The patient noted that she has never had psychiatric treatment in the past. She noted that she is not suicidal now. She noted that she relaxed after coming to the hospital and rehashed her thoughts. She noted that then in future she will talk to somebody. She stated that her mother is her best support. Her is very support. He is recovered and has been sober for 1-2 years. Hospital Course: After admission the patient was started on Prozac 20 mg. She was involved in milieu and individual psychotherapy. The patient showed rapid improvement. She attended all the groups. Her interaction with staff and peers was good. She showed no behavioral disturbance Her visited her over the weekend. As per patient, he was satisfied with her improvement. The patient did not report any side effects with medications. She remained compliant with treatment through out the hospital stay. She is not suicidal or homicidal. She is stable to be dischrged to next level of care. She plans to attend out-pt treatment at [facility]. She intends to join [employer] [facility] and seen addiction therapist and behavioral therapist as well as psychiatrist for medication management after discharge. She no forearms or weapons in her possession. MSE: Alert and attentive. Orientation times three Dressed and Groomed: Appropriately. Pleasant and cooperative. Psychomotor Activity: Normal. Speech: Normal in tone, quality, and quantity. Mood: Anxious. Affect: Tense and anxious. SI or HI: None. Perceptual disturbance: None. Thought Content: No paranoia or other delusional thinking noted. Thought Process: Normal. Cognition: Intact Judgment and Insight: poor Diagnosis: Major Depressive Disorder, recurrent. Pathological Gambling Plan: The patient to be discharged today. The patient has attained good improvement since admission. He is stable to be followed as an outpatient. The patient is not suicidal or Homicidal. He does not pose any harm to self or others. The patient remains at a greater risk of self-harm or harm to others than general population on a chronic basis due to psychiatric illness and substance abuse. The patient will continue taking following medication post discharge. The importance of medication compliance and maintaining regular appointments at psychiatric out-pt and PCP clinic was explained and encouraged. The patient was also advised to seek Gambling counseling and attend Gambling Anonymous. . The understood and agreed with the recommendations. used car make ready worker to arrange for and conduct family meeting to ensure safety upon discharge and answer any questions. The social science instructor to arrange for patients follow-up appointments at [facility] for psychiatric care along with follow-up with PCP. The patient provided psychoeducation. Advised to call 911 or go to nearest ED or call this hospital in case of acute worsening of symptomatology, severe side effects or having suicidal, homicidal thoughts and feeling unsafe at home. Patient Condition at Discharge: Stable Plan - Discharge Summary Discharge Rx Participant: Yes New Discharge Prescriptions: New FLUoxetine HCL [PROzac] 20 mg PO DAILY 30 Days #30 cap Melatonin 5 mg PO HS tab Continue Cyanocobalamin (Vitamin B-12) [Vitamin B-12] 1,000 mcg PO DAILY Biotin 5 mg PO DAILY Cyclobenzaprine [Flexeril] 10 mg PO TID PRN #15 tab PRN Reason: Muscle Spasm Discharge Medication List Cyanocobalamin (Vitamin B-12) [Vitamin B-12] 1,000 mcg PO DAILY 04/29/18 [History] Biotin 5 mg PO DAILY 05/24/18 [History] Cyclobenzaprine [Flexeril] 10 mg PO TID PRN #15 tab 01/13/21 [Rx] FLUoxetine HCL [PROzac] 20 mg PO DAILY 30 Days #30 cap 05/06/24 [Rx] Melatonin 5 mg PO HS tab 02/16/24 [Rx] Follow up Appointment(s)/Referral(s): [facility] [Other] - 02/18/24 3:00 pm (please check email for intake packet Mariann 02/17 @ 15:00 You will get a email with paperwork please fill out prior to appt online it will all go back to the facility. Any quesitons or problems please call yvan elizondo ) [facility] [Other] - 02/27/24 11:20 am (Dr Turk 02/26 @ 11:20 Via Telehealth ) Trace Paige MD [Primary Care Provider] - 1-2 days Patient Instructions/Handouts: Depression (DC) Activity/Diet/Wound Care/Special Instructions: Avoid the use of street drugs and alcohol. Take all medications as prescribed. When you are in need of refills on your medications, please contact your medical provider and/or outpatient psychiatrist/provider to have this done. Please go to your scheduled outpatient appointment for aftercare treatment. If symptoms return or become worse, call the crisis line at and/or go to the nearest emergency room for evaluation. National Suicide Hotline 085
== END 2024-02-16 15:15 | disposition home or self-care (01) | DRG 885 ==
LOC: EC 21:35 → 3MHU 02-13 03:22
PROVIDERS: ADMIT Psychiatry & Neurology Psychiatry; ATTEND Psychiatry & Neurology Psychiatry
DX: F33.9 Major depressive disorder, recurrent, unspecified (principal); R45.851 Suicidal ideations; F63.0 Pathological gambling; Z28.21 Immunization not carried out because of patient refusal; F17.290 Nicotine dependence, other tobacco product, uncomplicated; F17.210 Nicotine dependence, cigarettes, uncomplicated; F90.9 Attention-deficit hyperactivity disorder, unspecified type; R74.01 Elevation of levels of liver transaminase levels; Z59.89 Other problems related to housing and economic circumstances
CPT/HCPCS: 80053; 80061; 80306; 81003; 81025; 82075; 83036; 84443; 85025; 87635; 93005; 99285

== ENCOUNTER 2025-04-22 13:15 | Emergency (ER) | payer BC ==
[2025-04-22 13:28] VITALS: RESP 20; TEMP 98
--- NOTE | 2025-04-22 14:14 | ED ---
General Adult HPI - General Chief complaint: Syncope Stated complaint: syncope Time Seen by Provider: 04/22/25 14:08 Source: patient, RN notes reviewed Mode of arrival: ambulatory Limitations: no limitations - History of Present Illness Initial comments: 34-year-old female presenting for 3 episodes of syncope prior to arrival. States she donated plasma this morning and afterwards stopped at [place]. States she was waiting for food when she reportedly syncopized and hit her head on the ground. States she came to and stood up when she syncopized a second time. She then came to and syncopized a third time. Patient states she continues to feel "fuzzy" but is otherwise starting to feel better. Denies chest pain, shortness of breath, abdominal pain, chance of . Denies headache, nausea, vomiting, vision changes. Denies blood thinners. Blood glucose in EMS was found to be in the mid 200s. Patient denies any significant medical history besides ADHD for which she takes medication for. Denies recent changes in medication or dosing. Patient has never syncopized before. States she has been donated plasma for the past few years and has never had an issue. Denies any extremity injuries from the falls. - Related Data Home Medications Medication Instructions Recorded Confirmed Cyanocobalamin (Vitamin B-12) 1,000 mcg PO DAILY 04/29/18 05/24/18 [Vitamin B-12] Biotin 5 mg PO DAILY 05/24/18 05/24/18 Previous Rx's Medication Instructions Recorded Cyclobenzaprine [Flexeril] 10 mg PO TID PRN #15 tab 01/13/21 FLUoxetine HCL [PROzac] 20 mg PO DAILY 30 Days #30 cap 02/16/24 Melatonin 5 mg PO HS tab 02/16/24 Allergies Allergy/AdvReac Type Severity Reaction Status Date / Time No Known Allergies Allergy Verified 04/22/25 13:28 Review of Systems ROS Statement: Those systems with pertinent positive or pertinent negative responses have been documented in the HPI. ROS Other: All systems not noted in ROS Statement are negative. Past Medical History Past Medical History: No Reported History History of Any Multi-Drug Resistant Organisms: None Reported Past Surgical History: Tubal Ligation Past Anesthesia/Blood Transfusion Reactions: No Reported Reaction Past Psychological History: ADD/ADHD Smoking Status: Current every day smoker, Vaper Past Alcohol Use History: Occasional Past Drug Use History: None Reported - Past Family History Mother Family Medical History: No Reported History General Exam Limitations: no limitations General appearance: alert, in no apparent distress Head exam: Present: atraumatic, normocephalic, normal inspection Eye exam: Present: normal appearance, PERRL, EOMI. Absent: scleral icterus, conjunctival injection, periorbital swelling ENT exam: Present: normal exam, normal oropharynx, mucous membranes moist Neck exam: Present: normal inspection. Absent: tenderness, meningismus, lymphadenopathy Respiratory exam: Present: normal lung sounds bilaterally. Absent: respiratory distress, wheezes, rales, rhonchi, stridor Cardiovascular Exam: Present: regular rate, normal rhythm, normal heart sounds. Absent: systolic murmur, diastolic murmur, rubs, gallop, clicks GI/Abdominal exam: Present: soft, normal bowel sounds. Absent: distended, tenderness, guarding, rebound, rigid Extremities exam: Present: normal inspection, full ROM, normal capillary refill. Absent: tenderness, pedal edema, joint swelling, calf tenderness Back exam: Present: normal inspection Neurological exam: Present: alert, oriented X3, CN II-XII intact Psychiatric exam: Present: normal affect, normal mood Skin exam: Present: warm, dry, intact, normal color. Absent: rash Course Vital Signs 04/22/25 04/22/25 13:25 17:05 Temperature 98 F Pulse Rate 86 89 Respiratory 20 20 Rate Blood Pressure 93/67 122/76 O2 Sat by Pulse 100 99 Oximetry EKG Findings - EKG Results: EKG: interpreted by ERMD (EKG reveals normal sinus rhythm with no acute ST changes. Ventricular rate 84 bpm, PA interval 145, QRS duration 88, QT/QTc 396/436) Medical Decision Making - Medical Decision Making Was pt. sent in by a medical professional or institution (, PA, HOSPITAL HOUSEKEEPER, urgent care, hospital, or senior living...) When possible be specific @ -No Did you speak to anyone other than the patient for history (EMS, parent, family, police, friend...)? What history was obtained from this source @ -No Did you review nursing and triage notes (agree or disagree)? Why? @ -I reviewed and agree with nursing and triage notes Were old charts reviewed (outside hosp., previous admission, EMS record, old EKG, old radiological studies, urgent care reports/EKG's, senior living records)? Report findings @ -No old charts were reviewed Differential Diagnosis (chest pain, altered mental status, abdominal pain women, abdominal pain men, vaginal bleeding, weakness, fever, dyspnea, syncope, headache, dizziness, GI bleed, back pain, seizure, CVA, palpatations, mental health, musculoskeletal)? @ -Differential Syncope: Valvular disease, hypertrophic cardiomyopathy, pulmonary embolism, tamponade, tachycardia, bradycardia, RI, hypovolemia, hemorrhage, dissection, anemia, intracranial hemorrhage, seizure, hypoglycemia, carbon monoxide poisoning, this is not meant to be an all-inclusive list. EKG interpreted by me (3pts min.). @ -As above X-rays interpreted by me (1pt min.). @ -None done CT interpreted by me (1pt min.). @ -CT brain reveals no acute intracranial process U/S interpreted by me (1pt. min.). @ -None done What testing was considered but not performed or refused? (CT, X-rays, U/S, labs)? Why? @ -None What meds were considered but not given or refused? Why? @ -None Did you discuss the management of the patient with other professionals (professionals i.e. , PA, HOSPITAL HOUSEKEEPER, lab, RT, psych nurse, oncology social worker, leaf sorter, teacher, intelligence officer, onsite case manager)? Give summary @ -No Was smoking cessation discussed for >3mins.? @ -No Was critical care preformed (if so, how long)? @ -No Were there social determinants of health that impacted care today? How? (Homelessness, low income, unemployed, alcoholism, drug addiction, transpor tation, low edu. Level, literacy, decrease access to med. care, senior care, rehab)? @ -No Was there de-escalation of care discussed even if they declined (Discuss DNR or withdrawal of care, Hospice)? DNR status @ -No What co-morbidities impacted this encounter? (DM, HTN, Smoking, COPD, CAD, Cancer, CVA, ARF, Chemo, Hep., AIDS, mental health diagnosis, sleep apnea, morbid obesity)? @ -None Was patient admitted / discharged? Hospital course, mention meds given and route, prescriptions, significant lab abnormalities, going to OR and other pertinent info. @ -Discharge. 34-year-old female presenting for 3 episodes of syncope prior to arrival after donating plasma. Patient does endorse head injury with the falls. Denies chest pain, headache, abdominal pain. Blood pressure upon arrival is 93/67 otherwise vital signs within acceptable limits. Provided with IV fluids. EKG reveals normal sinus rhythm with no acute ST changes. Lab work including CBC, CMP, troponin, D-dimer remarkable for leukocytosis of 17 otherwise unremarkable. Urine negative. Urinalysis unremarkable. CT brain n egative. Repeat blood pressure 122/76. Discussed diagnosis of likely vasovagal syncope however advised close follow-up with PCP and appropriate return precautions. Case was discussed with my ED attending Dr. Meredith Undiagnosed new problem with uncertain prognosis? @ -No Drug Therapy requiring intensive monitoring for toxicity (Heparin, Nitro, Insulin, Cardizem)? @ -No Were any procedures done? @ -No Diagnosis/symptom? @ -Syncope Acute, or Chronic, or Acute on Chronic? @ -Acute Uncomplicated (without systemic symptoms) or Complicated (systemic symptoms)? @ -Uncomplicated Side effects of treatment? @ -No Exacerbation, Progression, or Severe Exacerbation? @ -No Poses a threat to life or bodily function? How? (Chest pain, USA, RI, pneumonia, PE, COPD, DKA, ARF, appy, cholecystitis, CVA, Diverticulitis, Homicidal, Suicidal, threat to staff... and all critical care pts) @ -Unlikely at this time - Lab Data Result diagrams: 04/22/25 15:23 04/22/25 15:23 Lab Results 04/22/25 04/22/25 04/22/25 Range/Units 15:23 15:23 15:23 WBC 17.18 H (4.50-10.00) 10*3/uL RBC 5.35 H (4.10-5.20) 10*6/uL Hgb 16.0 H (12.0-15.0) g/dL Hct 47.1 H (37.2-46.3) % MCV 88.0 (80.0-97.0) fL MCH 29.9 (27.0-32.0) pg MCHC 34.0 (32.0-37.0) g/dL Plt Count 340 (140-440) 10*3/uL MPV 9.4 L (9.5-12.2) fL Immature Gran % (Auto) 0.6 % Neutrophils % 81.8 % Lymphocytes % 10.7 % Monocytes % 4.8 % Eosinophils % 1.8 % Basophils % 0.3 % Immature Gran # 0.10 H (0.00-0.04) 10*3/uL Neutrophils # 14.05 H (1.80-7.70) 10*3/uL Lymphocytes # 1.83 (0.90-5.00) 10*3/uL Monocytes # 0.83 (0.20-1.00) 10*3/uL Eosinophils # 0.31 (0.04-0.35) 10*3/uL Basophils # 0.06 (0.00-0.10) 10*3/uL D-Dimer 0.28 (<0.60) mg/L FEU Sodium 138 (137-145) mmol/L Potassium 4.1 (3.5-5.1) mmol/L Chloride 103 (98-107) mmol/L Carbon Dioxide 27 (22-30) mmol/L Anion Gap 8 mmol/L BUN 9 (7-17) mg/dL Creatinine 0.71 (0.52-1.04) mg/dL Est GFR (CKD-EPI)AfAm >90 (>60 ml/min/1.73 sqM) Est GFR (CKD-EPI)NonAf >90 (>60 ml/min/1.73 sqM) Glucose 102 H (74-99) mg/dL Calcium 9.1 (8.4-10.2) mg/dL Total Bilirubin 0.7 (0.2-1.3) mg/dL AST 29 (14-36) U/L ALT 18 (4-34) U/L Alkaline Phosphatase 61 (38-126) U/L Troponin I (0.000-0.034) ng/mL Total Protein 6.5 (6.3-8.2) g/dL Albumin 3.8 (3.5-5.0) g/dL Urine Color Urine Appearance (Clear) Urine pH (5.0-8.0) Ur Specific Moran (1.001-1.035) Urine Protein (Negative) Urine Glucose (UA) (Negative) Urine Ketones (Negative) Urine Blood (Negative) Urine Nitrite (Negative) Urine Bilirubin (Negative) Urine Urobilinogen (<2.0) mg/dL Ur Leukocyte Esterase (Negative) Urine RBC (0-5) /hpf Urine WBC (0-5) /hpf Ur Squamous Epith Cells (0-4) /hpf Urine Bacteria (None) /hpf Hyaline Casts (0-2) /lpf Urine Mucus (None) /hpf Urine HCG, Qual (Not Detectd) 04/22/25 04/22/25 04/22/25 Range/Units 15:23 15:41 15:41 WBC (4.50-10.00) 10*3/uL RBC (4.10-5.20) 10*6/uL Hgb (12.0-15.0) g/dL Hct (37.2-46.3) % MCV (80.0-97.0) fL MCH (27.0-32.0) pg MCHC (32.0-37.0) g/dL Plt Count (140-440) 10*3/uL MPV (9.5-12.2) fL Immature Gran % (Auto) % Neutrophils % % Lymphocytes % % Monocytes % % Eosinophils % % Basophils % % Immature Gran # (0.00-0.04) 10*3/uL Neutrophils # (1.80-7.70) 10*3/uL Lymphocytes # (0.90-5.00) 10*3/uL Monocytes # (0.20-1.00) 10*3/uL Eosinophils # (0.04-0.35) 10*3/uL Basophils # (0.00-0.10) 10*3/uL D-Dimer (<0.60) mg/L FEU Sodium (137-145) mmol/L Potassium (3.5-5.1) mmol/L Chloride (98-107) mmol/L Carbon Dioxide (22-30) mmol/L Anion Gap mmol/L BUN (7-17) mg/dL Creatinine (0.52-1.04) mg/dL Est GFR (CKD-EPI)AfAm (>60 ml/min/1.73 sqM) Est GFR (CKD-EPI)NonAf (>60 ml/min/1.73 sqM) Glucose (74-99) mg/dL Calcium (8.4-10.2) mg/dL Total Bilirubin (0.2-1.3) mg/dL AST (14-36) U/L ALT (4-34) U/L Alkaline Phosphatase (38-126) U/L Troponin I <0.012 (0.000-0.034) ng/mL Total Protein (6.3-8.2) g/dL Albumin (3.5-5.0) g/dL Urine Color Yellow Urine Appearance Cloudy H (Clear) Urine pH 5.5 (5.0-8.0) Ur Specific Moran 1.022 (1.001-1.035) Urine Protein Trace H (Negative) Urine Glucose (UA) Negative (Negative) Urine Ketones Trace H (Negative) Urine Blood Negative (Negative) Urine Nitrite Negative (Negative) Urine Bilirubin Negative (Negative) Urine Urobilinogen <2.0 (<2.0) mg/dL Ur Leukocyte Esterase Small H (Negative) Urine RBC 2 (0-5) /hpf Urine WBC 2 (0-5) /hpf Ur Squamous Epith Cells 4 (0-4) /hpf Urine Bacteria Occasional H (None) /hpf Hyaline Casts 3 H (0-2) /lpf Urine Mucus Many H (None) /hpf Urine HCG, Qual Not Detected (Not Detectd) Disposition Clinical Impression: Vasovagal syncope Disposition: HOME SELF-CARE Condition: Stable Instructions (If sedation given, give patient instructions): Syncope (ED) Additional Instructions: Follow-up with your PCP. Please return to the Emergency Department if symptoms worsen or any other concerns. Is patient prescribed a controlled substance at d/c from ED?: No Referrals: Trace Paige MD [Primary Care Provider] - 1-2 days Time of Disposition: 16:58
[2025-04-22] MEDS: SODIUM CHLORIDE 0.9% 1,000 ML IV STA (15:24)
[2025-04-22 15:29] LABS: Basophils # (A) 0.06 10*3/uL (0.00-0.10); Basophils % (A) 0.3 %; Eosinophils # (A) 0.31 10*3/uL (0.04-0.35); Eosinophils % (A) 1.8 %; HCT 47.1 % (37.2-46.3); HGB 16.0 g/dL (12.0-15.0); Lymphocytes # (A) 1.83 10*3/uL (0.90-5.00); Lymphocytes % (A) 10.7 %; MCH 29.9 pg (27.0-32.0); MCHC 34.0 g/dL (32.0-37.0); MCV 88.0 fL (80.0-97.0); Monocytes # (A) 0.83 10*3/uL (0.20-1.00); Monocytes % (A) 4.8 %; Neutrophils # (A) 14.05 10*3/uL (1.80-7.70); Neutrophils % (A) 81.8 %; Platelet Count 340 10*3/uL (140-440); RBC 5.35 10*6/uL (4.10-5.20); RDW 12.3 % (11.5-14.5); WBC 17.18 10*3/uL (4.50-10.00)
[2025-04-22 15:46] LABS: ALT 18 U/L (4-34); AST 29 U/L (14-36); African American GFR (CKD) >90 (>60 ml/min/1.73 sqM); Albumin 3.8 g/dL (3.5-5.0); Alkaline Phosphatase 61 U/L (38-126); Anion Gap 8 mmol/L; Blood Urea Nitrogen 9 mg/dL (7-17); Calcium 9.1 mg/dL (8.4-10.2); Carbon Dioxide 27 mmol/L (22-30); Chloride 103 mmol/L (98-107); Glucose 102 mg/dL (74-99); Non-African American GFR(CKD) >90 (>60 ml/min/1.73 sqM); Potassium 4.1 mmol/L (3.5-5.1); Sodium 138 mmol/L (137-145); Total Protein 6.5 g/dL (6.3-8.2)
[2025-04-22 15:57] LABS: Bacteria,Urine Occasional /hpf; Bilirubin,Urine Negative (Negative); Blood,Urine Negative (Negative); Color,Urine Yellow; Glucose,Urine (UA) Negative (Negative); Hyaline Casts,Urine 3 /lpf (0-2); Ketones,Urine Trace (Negative); Leukocyte Esterase,Urine Small (Negative); Mucus,Urine Many /hpf; Nitrite,Urine Negative (Negative); PH, Urine 5.5 (5.0-8.0); Protein,Urine Trace (Negative); RBC,Urine 2 /hpf (0-5); Specific Gravity,Urine 1.022 (1.001-1.035); Squamous Epithelial Cell,Urine 4 /hpf (0-4); Urobilinogen,Urine <2.0 mg/dL (<2.0); WBC,Urine 2 /hpf (0-5)
--- NOTE | 2025-04-22 16:27 | CT ---
EXAMINATION TYPE: CT brain wo con DATE OF EXAM: 04/22/2025 4:19 PM COMPARISON: None. CLINICAL INDICATION: Female, 34 years old with history of syncope 3x, head injury, 4 Syncopal episode s today. Hit head. No thinners. TECHNIQUE: CT of the brain is performed utilizing 3 mm thick sections through the posterior fossa and 3 mm thick sections through the remaining calvarium. Study is performed within 24 hours of arrival to the hospital. Contrast used: mL of , (none if empty) CT DLP: 1097.4 mGycm, Automated exposure control for dose reduction was used. FINDINGS: No abnormal hyperdensity is present to suggest an acute intracranial hemorrhage. No mass lesion is evident. No acute infarcts are evident. Ventricles and sulci are appropriate for the patient age. Paranasal sinuses and mastoid air cells within the [id number] are clear. IMPRESSION: 1. No acute intracranial process. Follow up MRI can be performed as clinically indicated. [facility], , 04/22/2025 4:25 PM
[2025-04-22 17:06] VITALS: BP 122/76; PULSE 89
== END 2025-04-22 17:07 | disposition home or self-care (01) ==
LOC: EC 13:15
DX: R55 Syncope and collapse (principal); F17.290 Nicotine dependence, other tobacco product, uncomplicated
CPT/HCPCS: 36415; 70450; 80053; 81001; 81025; 84484; 85025; 85379; 93005; 96360; 99285